=== PATIENT | female | born 1980 | race Caucasian/White ===

== ENCOUNTER → 2018-07-04 | Outpatient (CLI) | payer OTHER ==
[~2018-07-04] MED LIST: ESCI5TAB10 PO; PREN-127 PO
[2018-07-04 10:57] LABS: PLATELET COUNT, AUTOMATED 182 K/uL (150-450)
== END ==
LOC: LAB 10:23
PROVIDERS: ATTEND Obstetrics & Gynecology
DX: Z34.91 Encounter for supervision of normal pregnancy, unspecified, first trimester (principal)
CPT/HCPCS: 36415; 81001; 85025; 86592; 86703; 86762; 86787; 86850; 86900; 86901; 87088; 87340

== ENCOUNTER → 2018-07-31 | Outpatient (CLI) | payer OTHER ==
[~2018-07-31] MED LIST changes: +ESCI5TAB3 PO; +FLUC150T40 PO; +LOR5/325 PO; +METR500T54 PO
== END ==
LOC: LAB 14:18
PROVIDERS: ATTEND Advanced Practice Midwife
DX: N89.8 Other specified noninflammatory disorders of vagina (principal)
CPT/HCPCS: 87210

== ENCOUNTER 2018-08-04 04:28 | Observation (INO) | payer OTHER ==
[~2018-08-04 04:28] MED LIST changes: -ESCI5TAB3 PO; -LOR5/325 PO
--- NOTE | 2018-08-04 04:31 | ER Report ---
History and Physical Time Seen By MD: 04:31 (MILES SZYMANSKI DO) HPI/ROS CHIEF COMPLAINT: Vaginal bleeding,? Miscarriage HISTORY OF PRESENT ILLNESS: 37-year-old female at approximately 11 weeks. Being followed by [facility], for recent yeast infection and bacterial vaginosis. She began having heavy spotting and cramping around 2 AM. She passed a large amount of clots. She states the equivalent of 45 large pools of blood. Also passed a grayish mass of tissue about the size of a golf ball or liquid bigger, which may have been the gestational sac. Her cramping has gotten better in the last half hour. REVIEW OF SYSTEMS: Respiratory: No cough, no dyspnea. Cardiovascular: No chest pain, no palpitations. Gastrointestinal: No vomiting, no abdominal pain. Musculoskeletal: No back pain. (MILES SZYMANSKI DO) Allergies: Coded Allergies: amoxicillin (Verified Allergy, Unknown, Hives, 07/04/18) Uncoded Allergies: cough medicine (Allergy, Unknown, unsure, 07/04/18) Home Meds Active Scripts Escitalopram Oxalate (ESCITALOPRAM OXALATE) 5 Mg Tablet, 5 MG PO QDAY for 30 Days, #30 TAB 12 Refills Prov:TOMHONG 08/04/18 Fluconazole (DIFLUCAN) 150 Mg Tablet, 150 MG PO DIRECTED, #2 TAB 0 Refills 1 tab Po now and repeat in 3 days Prov:DARWIN CASILLAS [facility] 08/01/18 Metronidazole (METRONIDAZOLE) 500 Mg Tablet, 500 MG PO BID for bacterial vaginosis for 7 Days, #14 TAB 0 Refills Prov:DARWIN CASILLAS [facility] 07/31/18 Reported Medications Vits W-Ca,Fe,Fa(<1MG) ( VITAMINS) 1 Each Tablet, 1 EACH PO DAILY, TAB 07/04/18 Escitalopram Oxalate (LEXAPRO) 5 Mg Tablet, 10 MG PO QDAY 07/04/18 Discontinued Scripts Hydrocodone Bit/Acetaminophen (HYDROCODON-ACETAMINOPHEN 5-325) 1 Each Tablet, 1- 2 EACH PO Q4-6H PRN for PAIN, #15 TAKE ONE TABLET BY MOUTH EVERY 4-6 HOURS NEEDED FOR PAIN Prov:MILES SZYMANSKI DO 08/04/18 Reviewed Nurses Notes: Yes Old Medical Records Reviewed: Yes (MILES SZYMANSKI DO) Smoking Status: Never Smoker (KOTAMILESFay Montoya DO) Constitutional Vital Sign - Last 24 Hours 08/04/18 08/04/18 08/04/18 08/04/18 04:33 04:34 04:58 05:00 Temp 98.1 Pulse 64 68 Resp 18 B/P (MAP) 107/71 (83) 107/71 97/60 (72) Pulse Ox 95 95 O2 Delivery Room Air 08/04/18 08/04/18 08/04/18 08/04/18 05:28 05:30 05:58 05:58 Pulse 67 57 B/P (MAP) 90/57 (68) Pulse Ox 98 98 O2 Flow Rate 1.5 08/04/18 08/04/18 08/04/18 08/04/18 06:03 06:30 06:33 07:00 Pulse 57 70 B/P (MAP) 107/69 (82) 107/65 (79) Pulse Ox 99 98 08/04/18 08/04/18 08/04/18 08/04/18 07:03 07:08 07:30 07:38 Pulse 61 ??? 80 B/P (MAP) 124/58 (80) Pulse Ox 98 97 96 08/04/18 08/04/18 08/04/18 08/04/18 08:00 08:05 08:20 08:27 Pulse 64 B/P (MAP) 95/60 (72) 76/50 (59) 83/37 (52) Pulse Ox 94 08/04/18 08:35 Pulse 71 Pulse Ox 94 Intake and Output 08/03/18 08/03/18 08/04/18 15:00 23:00 07:00 Intake Total 1000 ml Balance 1000 ml (ALANA ZIEGLER MD) Physical Exam Vital signs stable, afebrile, pulse ox normal General Appearance: The patient is alert, has no immediate need for airway protection and no current signs of toxicity. Skin warm, dry, pink, slightly pale appearing Eyes: Pupils equal and round no injection. Respiratory: Chest is non tender, lungs are clear to auscultation. Cardiac: regular rate and rhythm Gastrointestinal: Abdomen is soft and non tender, no masses, bowel sounds normal. Musculoskeletal: Neck: Neck is supple and non tender. Extremities have full range of motion and are non tender. Skin: No rashes or lesions. DIFFERENTIAL DIAGNOSIS: After history and physical exam differential diagnosis was considered for vaginal bleeding including but not limited to ectopic , menses, miscarriage, and dysfunctional uterine bleeding. (MILES SZYMANSKI DO) Medical Decision Making Data Points Result Diagram: 08/04/18 0838 08/04/18 0500 Laboratory Hematology Test 08/04/18 00:00 08/04/18 05:00 Human Chorionic Gonadotropin, Quant 08722 mIU/ml Red Blood Count 4.31 M/uL (4.17-5.56) Mean Corpuscular Volume 100.1 fL (80.0-96.0) Mean Corpuscular Hemoglobin 35.0 pg (26.0-33.0) Mean Corpuscular Hemoglobin Concent 34.9 g/dL (32.0-36.0) Red Cell Distribution Width 12.4 % (11.5-14.5) Mean Platelet Volume 8.9 fL (7.2-11.1) Neutrophils (%) (Auto) 84.7 % (39.4-72.5) Lymphocytes (%) (Auto) 8.9 % (17.6-49.6) Monocytes (%) (Auto) 5.1 % (4.1-12.4) Eosinophils (%) (Auto) 0.8 % (0.4-6.7) Basophils (%) (Auto) 0.5 % (0.3-1.4) Nucleated RBC Relative Count (auto) 0.0 /100WBC Neutrophils # (Auto) 6.4 K/uL (2.0-7.4) Lymphocytes # (Auto) 0.7 K/uL (1.3-3.6) Monocytes # (Auto) 0.4 K/uL (0.3-1.0) Eosinophils # (Auto) 0.1 K/uL (0.0-0.5) Basophils # (Auto) 0.0 K/uL (0.0-0.1) Nucleated RBC Absolute Count (auto) 0.00 K/uL Prothrombin Time 13.8 seconds (12.0-14.4) Prothromb Time International Ratio 1.06 Activated Partial Thromboplast Time 31 seconds (23-35) Sodium Level 136 mmol/L (137-145) Potassium Level 3.4 mmol/L (3.5-5.0) Chloride Level 104 mmol/L (98-107) Carbon Dioxide Level 22 mmol/L (22-31) Blood Urea Nitrogen 12 mg/dl (7-18) Creatinine 0.80 mg/dl (0.52-1.04) Glomerular Filtration Rate Calc > 60.0 Random Glucose 125 mg/dl (75-110) Calcium Level 8.9 mg/dl (8.4-10.2) Total Bilirubin 0.2 mg/dl (0.2-1.3) Aspartate Amino Transf (AST/SGOT) 20 U/L (0-35) Alanine Aminotransferase (ALT/SGPT) 20 U/L (0-56) Alkaline Phosphatase 53 U/L (0-126) Total Protein 7.2 g/dl (6.3-8.2) Albumin 4.0 g/dl (3.5-5.0) Human Chorionic Gonadotropin, Qual Positive (NEGATIVE) Chemistry Test 08/04/18 00:00 08/04/18 05:00 08/04/18 08:38 Human Chorionic Gonadotropin, Quant 05072 mIU/ml White Blood Count 7.5 k/uL (4.5-11.0) Red Blood Count 4.31 M/uL (4.17-5.56) Mean Corpuscular Volume 100.1 fL (80.0-96.0) Mean Corpuscular Hemoglobin 35.0 pg (26.0-33.0) Mean Corpuscular Hemoglobin Concent 34.9 g/dL (32.0-36.0) Red Cell Distribution Width 12.4 % (11.5-14.5) Platelet Count 171 K/uL (150-450) Mean Platelet Volume 8.9 fL (7.2-11.1) Neutrophils (%) (Auto) 84.7 % (39.4-72.5) Lymphocytes (%) (Auto) 8.9 % (17.6-49.6) Monocytes (%) (Auto) 5.1 % (4.1-12.4) Eosinophils (%) (Auto) 0.8 % (0.4-6.7) Basophils (%) (Auto) 0.5 % (0.3-1.4) Nucleated RBC Relative Count (auto) 0.0 /100WBC Neutrophils # (Auto) 6.4 K/uL (2.0-7.4) Lymphocytes # (Auto) 0.7 K/uL (1.3-3.6) Monocytes # (Auto) 0.4 K/uL (0.3-1.0) Eosinophils # (Auto) 0.1 K/uL (0.0-0.5) Basophils # (Auto) 0.0 K/uL (0.0-0.1) Nucleated RBC Absolute Count (auto) 0.00 K/uL Prothrombin Time 13.8 seconds (12.0-14.4) Prothromb Time International Ratio 1.06 Activated Partial Thromboplast Time 31 seconds (23-35) Glomerular Filtration Rate Calc > 60.0 Calcium Level 8.9 mg/dl (8.4-10.2) Total Bilirubin 0.2 mg/dl (0.2-1.3) Aspartate Amino Transf (AST/SGOT) 20 U/L (0-35) Alanine Aminotransferase (ALT/SGPT) 20 U/L (0-56) Alkaline Phosphatase 53 U/L (0-126) Total Protein 7.2 g/dl (6.3-8.2) Albumin 4.0 g/dl (3.5-5.0) Human Chorionic Gonadotropin, Qual Positive (NEGATIVE) Hemoglobin 13.5 g/dL (12.0-16.0) Hematocrit 38.8 % (34.0-47.0) Coagulation Test 08/04/18 05:00 Prothrombin Time 13.8 seconds Prothromb Time International Ratio 1.06 Activated Partial Thromboplast Time 31 seconds (ALANA ZIEGLER MD) EKG/Imaging Imaging Results: Ultrasound of the transvaginal pelvic ultrasound was obtained. The results of the study are OB TRANSVAGINAL HISTORY: 37-year-old female with vaginal bleeding. Patient is repor tedly 11 weeks 0 days . COMPARISON: None. FINDINGS: The uterus is retroverted measures 8.6 x 4.9 x 5.7 cm. The endometrial stripe measures 15 mm and is heterogeneous and likely represents hematoma. There is no visible gestational sac or pole. Color Doppler imaging demonstrates a possible small bleeding vessel in the endometrial stripe. Small amount of simple free fluid is noted. Right ovary is nonvisualized. Left ovary measures 3.1 x 2.4 x 1.7 cm. There is a hypoechoic probable corpus luteal cyst measuring 1.8 x 1.9 x 1.8 cm. IMPRESSION: 1. Ultrasound findings suggest intrauterine demise. The endometrium is filled with hematoma. No visible intrauterine gestational sac or pole. There may be a small active bleeding vessel in the endometrium on color Doppler imaging. 2. Small amount of simple appearing free fluid in the cul-de-sac. 3. Right ovary is not visualized. The study was read by the radiologist. I viewed the images myself on the PACS system. (MILES SZYMANSKI DO) ED Course/Re-evaluation Clinical Indication for ER IV: Hydration, IV Access Decision to Disposition Date: Aug 04, 2018 Decision to Disposition Time: 06:40 (MILES SZYMANSKI DO) ED Course I took this patient over from Dr. Szymanski pending reevaluation for pain and bleeding. The patient continued to have 6-7 out of 10 cramping pain and also minimal to moderate bleeding. I performed a pelvic exam which showed a large amount of blood clot at the os as well as blood in the vaginal vault, and active bleeding through the cervix. I removed a large amount of cat from the cervix. The cervix remained open, however the bleeding subsided. The patient's blood pressure dropped to 70 systolic, but improved after the cessation of the bleeding. She was given another liter of IV fluids. I called Dr. Bone who came to the emergency department to evaluate the patient. At this point, the bleeding continues to have subsided. Her pain is improved. However given the turn of events this morning, the patient states she would feel more comfortable under observation for the next few hours. She was given Cytotec. She will be admitted with Dr. Bone for observation. Decision to Disposition Date: Aug 04, 2018 Decision to Disposition Time: 08:54 (ALANA ZIEGLER MD) Depart Departure Latest Vital Signs Vital Signs Date Time Temp Pulse Resp B/P (MAP) Pulse Ox O2 Delivery O2 Flow Rate FiO2 08/04/18 08:35 71 94 08/04/18 08:27 83/37 (52) 08/04/18 05:58 1.5 08/04/18 04:34 98.1 18 Room Air (ALANA ZIEGLER MD) Impression: Primary Impression: Miscarriage Condition: Improved Disposition: Admitted from ER Referrals: DARWIN CASILLAS CNM (PCP) New Scripts Escitalopram Oxalate (ESCITALOPRAM OXALATE) 5 Mg Tablet 5 MG PO QDAY for 30 Days, #30 TAB 12 Refills Prov: HONG BONE 08/04/18 Patient Instructions: Miscarriage (ED) MILES SZYMANSKI DO Aug 04, 2018 04:31 ALANA ZIEGLER MD Aug 04, 2018 08:55
[2018-08-04] MEDS ORDERED: NS(*) 0.9% 1000 ML BAG 1,000 ML IV ONE ×2 (04:41→06:35)
[2018-08-04] MEDS ORDERED: ONDANSETRON 4 MG/2 ML VIAL IVP ONE (04:50)
[2018-08-04] MEDS ORDERED: fentaNYL CITR 100 MCG/2 ML AMP IVP ONE ×2 (04:50→05:30)
[2018-08-04 05:15] LABS: PLATELET COUNT, AUTOMATED 171 K/uL (150-450)
[2018-08-04 05:20] LABS: INR 1.06
[2018-08-04] MEDS ORDERED: HYDROMORPHONE HCL 1 MG/ML SYRINGE IVP ONE ×2 (06:10→06:35)
--- NOTE | 2018-08-04 06:19 | RADIOLOGY IMAGING REPORT ---
[place] [facility] [place] Shanika [place] : 1980 MR: [id number] V: [id number] EXAM DATE: ORDERING PHYSICIAN: MILES ESCUDERO TECHNOLOGIST: Location: [facility] [place] Patient: Shanika Hamilton : 1980 Visit/Account:[id number] Date of Sevice: 08/04/2018 ADDENDUM #1 The cervix appears to be partially open. Report Dictated By: Milton Trejo MD at 08/05/2018 2:21 AM Report E-Signed By: Milton Trejo MD at 08/05/2018 2:22 AM ORIGINAL REPORT OB TRANSVAGINAL HISTORY: 37-year-old female with vaginal bleeding. Patient is reportedly 11 weeks 0 days pr egnant. COMPARISON: None. FINDINGS: The uterus is retroverted measures 8.6 x 4.9 x 5.7 cm. The endometrial stripe measures 15 mm and is h eterogeneous and likely represents hematoma. There is no visible gestational sac or pole. Color Doppler imaging demonstrates a possible small bleeding vessel in the endometrial stripe. Small amount of simple free fluid is noted. Right ovary is nonvisualized. Left ovary measures 3.1 x 2.4 x 1.7 cm. There is a hypoechoic probable corpus luteal cyst measuring 1.8 x 1.9 x 1.8 cm. IMPRESSION: 1. Ultrasound findings suggest intrauterine demise. The endometrium is filled with hematoma. N o visible intrauterine gestational sac or pole. There may be a small active bleeding vessel in the endometrium on color Doppler imaging. 2. Small amount of simple appearing free fluid in the cul-de-sac. 3. Right ovary is not visualized. Results were called to MILES ESCUDERO at 08/04/2018 6:13 AM. Report Dictated By: Milton Trejo MD at 08/04/2018 6:07 AM Report E-Signed By: Milton Trejo MD at 08/04/2018 6:14 AM WSN:[id number]
[2018-08-04] MEDS ORDERED: LOR5/325 PO (07:00)
[2018-08-04] MEDS ORDERED: MISOPROSTOL 200 MCG TAB PR ONE (08:40)
[2018-08-04] MEDS ORDERED: PROMETHAZINE 25 MG/ML 1 ML AMP IVP PRN (09:00)
[2018-08-04] MEDS ORDERED: ACETAMINOPHEN 325 MG TAB PO PRN (09:00)
[2018-08-04] MEDS ORDERED: DOCUSATE CALCIUM 240 MG CAP PO SCH (09:00)
[2018-08-04] MEDS ORDERED: SIMETHICONE 80 MG CHEW CHEW PRN (09:00)
[2018-08-04] MEDS ORDERED: ZOLPIDEM TARTRATE 10 MG TAB PO PRN (09:00)
[2018-08-04] MEDS ORDERED: DLR(*) 1000 ML BAG 1,000 ML IV PRN (09:00)
[2018-08-04] MEDS ORDERED: ONDANSETRON 4 MG/2 ML VIAL IV PRN (09:00)
[2018-08-04] MEDS ORDERED: APAP/HYDROCODONE 325/5 TAB PO PRN (09:00)
[2018-08-04] MEDS ORDERED: FAMOTIDINE 20 MG TAB PO SCH (09:00)
[2018-08-04] MEDS ORDERED: IBUPROFEN 800 MG TAB PO PRN (09:00)
--- NOTE | 2018-08-04 09:10 | History & Physical ---
History of Present Illness Age of Patient: 37 : 1 Para or TPAL: 0 Chief Complaint Vaginal bleeding History of Present Illness Pt is a 37 y/o @ 10 wga by lmp who presents to the ED with a chief complaint of vaginal bleeding. Pt reports she started bleeding around 1 this AM. States bleeding has become increasingly heavy and came to the ER. Denies any shortness of breath or difficulty catching her breath. Reports she has been taking medications for BV and Yeast. History Patient's Blood Type: A Positive Obstetrical History: Past Medical History: Non contributory AMA Allergies: Coded Allergies: amoxicillin (Verified Allergy, Unknown, Hives, 07/04/18) Uncoded Allergies: cough medicine (Allergy, Unknown, unsure, 07/04/18) Social History: Denies X 3. = Harley Arreola. Family History: FH: brain tumor BROTHER OR SISTER (Pt's brother had benign brain tumor ) FH: cancer MGM (Skin Cancer) FH: cardiovascular disease FH: diabetes mellitus FATHER (Pt reports pre-diabetes ) FH: heart disease MGF ([place] ) Hypotension MOTHER Med Rec Home Meds Active Scripts Hydrocodone Bit/Acetaminophen (HYDROCODON-ACETAMINOPHEN 5-325) 1 Each Tablet, 1- 2 EACH PO Q4-6H PRN for PAIN, #15 TAKE ONE TABLET BY MOUTH EVERY 4-6 HOURS NEEDED FOR PAIN Prov:MILES ESCUDERO DO 08/04/18 Fluconazole (DIFLUCAN) 150 Mg Tablet, 150 MG PO DIRECTED, #2 TAB 0 Refills 1 tab Po now and repeat in 3 days Prov:DARWIN CASILLAS [facility] 08/01/18 Metronidazole (METRONIDAZOLE) 500 Mg Tablet, 500 MG PO BID for bacterial vaginos is for 7 Days, #14 TAB 0 Refills Prov:DARWIN CASILLAS [facility] 07/31/18 Reported Medications Vits W-Ca,Fe,Fa(<1MG) ( VITAMINS) 1 Each Tablet, 1 EACH PO DAILY, TAB 07/04/18 Escitalopram Oxalate (LEXAPRO) 5 Mg Tablet, 10 MG PO QDAY 07/04/18 Review of Systems All Systems Reviewed/Normal: Yes, Except as Noted Constitutional: No Fever, No Weight Loss, No Weight Gain, No Chills, No Night Sweats, No Other Neurological: No Syncope, No Confusion, No Weakness, No Dizziness, No Slurred Speech, No Other Eyes: No Vision Change, No Loss of Vision, No Photophobia, No Other ENT: No Hearing Loss, No Sinus Congestion, No Sore Throat, No Ear Ache, No Tinnitus, No Other Cardiovascular: No Chest Pain, No Palpitations, No Orthostatic Hypotension, No Other Respiratory: No Shortness of Breath, No Cough, No Wheezing, No Other Gastrointestinal: No Nausea, No Vomiting, No Diarrhea, No Dysphagia, No Constipation, No Early Satiety, No Hematemesis, No Hematochezia, No Melena, No Abdominal Pain, No Other Genitourinary: No Dysuria, No Hematuria, No Urinary Incontinence, No Other Musculoskeletal: No Pain, No Sprain, No Strain, No Impaired Mobility, No Other Psychiatric: No Depression, No Anxiety, No Other Exam General Exam Vital Signs Vital Signs Date Time Temp Pulse Resp B/P (MAP) Pulse Ox O2 Delivery O2 Flow Rate FiO2 08/04/18 09:00 58/42 (47) 08/04/18 08:40 76 93 08/04/18 05:58 1.5 08/04/18 04:34 98.1 18 Room Air General Apperance: Alert/Awake/No Acute Distress Neuro: No Gross deficits Eyes: Normal Extraocular Movement & Vison ENT: Normal Cardiovascular: Regular Rate and Rhythm Respiratory: No Respiratory Distress, Clear to Auscultation Abdomen: Soft, Non-Tender, Non-Distended, Gravid - Non-Tender, Other (cervix 1 cm, no clot visualized at cervix, no clot expressed with bimanual exam. ) : Normal Psychological: Alert & Oriented X3, Appropriate Mood & Affect Medical Decision Making Data Points Result Diagram: 08/04/18 0838 08/04/18 0500 Pre-Admit Course Medical Record Review: Yes VTE Prophylasis: Adult Deep Vein Thrombosis/Pulmonary: No Assessment and Plan BEHAVIORAL HEALTH THERAPIST Assessment: Stable Problems: (1) Incomplete Status: Acute Assessment & Plan: Will admit to FCU for observation. Give Cytotec CA as she is no longer bleeding heavily. Will watch to ensure bleeding stabilizes. PO pain medication. HONG SANTOS DO Aug 04, 2018 09:10
[2018-08-04 09:55] VITALS: BP 88/55
--- NOTE | 2018-08-04 12:28 | OB/GYN Progress Note ---
OB Subjective Progress Notes Subjective Pt doing better. Reports bleeding is much better. Pain controlled with po pain medications. Minimal cramping. GI: NEG Nausea, NEG Vomiting, NEG Flatus, NEG Bowel Movement : Voiding Well, Vaginal Bleeding, Scant Pain: Comfortable, Tolerating PO Pain Meds Neurological: No Headache, No Other Eyes: No Visual Disturbances OB Objective Physical Exam Vital Signs Date Time Temp Pulse Resp B/P (MAP) Pulse Ox O2 Delivery O2 Flow Rate FiO2 08/04/18 09:00 58/42 (47) 08/04/18 08:40 76 93 08/04/18 05:58 1.5 08/04/18 04:34 98.1 18 Room Air Intake and Output 08/04/18 07:00 Intake Total 1000 ml Balance 1000 ml Intake IV Total 1000 ml General Appearance: Alert/Awake/No Acute Distress Neurological: No Gross deficits Eyes: Normal Extraocular Movement & Vison Respiratory: No Respiratory Distress, Clear to Auscultation Abdomen: Soft, Non-Tender, Non-Distended : Normal Musculoskeletal: No Weakness/Pain Extremities: No Cyanosis,Clubbing or Edema Psychological: Alert & Oriented X3, Appropriate Mood & Affect Result Diagram: 08/04/18 0838 08/04/18 0500 Assessment and Plan SECURITY ASSOCIATE Assessment: Stable Problems: (1) Incomplete Status: Acute Assessment & Plan: Plan to PO challenge. Ambulate and discharge home. Follow up in the office in 2 weeks for HCG. HONG SANTOS DO Aug 04, 2018 12:28
[2018-08-04] MEDS ORDERED: ESCI5TAB3 PO (13:48)
[2018-08-05] MEDS ORDERED: INFLUENZA VIRUS VAC 0.5ML SYR IM ONLY ONE (09:00)
== END 2018-08-04 13:49 | disposition home or self-care (01) ==
LOC: ER 04:34 → OB 08:46 → INTOOBSV 08:46
PROVIDERS: ADMIT Student in an Organized Health Care Education/Training Program; ATTEND Student in an Organized Health Care Education/Training Program
DX: O03.4 Incomplete spontaneous abortion without complication (principal); Z3A.10 10 weeks gestation of pregnancy; Z88.0 Allergy status to penicillin
CPT/HCPCS: 76817; 84702; 84703; 85014; 85018; 85025; 85610; 85730; 86900; 86901; 96361; 96374; 96375; 96376; 99285; G0378; J1170; J2405; J3010; J7030; 36415; 82040; 82247; 82310; 82374; 82435; 82565; 82947; 84075; 84132; 84155; 84295; 84450; 84460; 84520

== ENCOUNTER → 2018-08-21 | Outpatient (CLI) | payer OTHER ==
[~2018-08-21] MED LIST changes: +ESCI5TAB3 PO; +L.AC1CAP6; +LOR5/325 PO
== END ==
LOC: LAB 11:16
PROVIDERS: ATTEND Student in an Organized Health Care Education/Training Program
DX: N89.8 Other specified noninflammatory disorders of vagina (principal)
CPT/HCPCS: 87210

== ENCOUNTER → 2019-02-04 | Outpatient (CLI) | payer OTHER ==
[~2019-02-04] MED LIST changes: +ESCI10TA8 PO; +GABA-549 PO; +METR500T15 PO; -METR500T54 PO
== END ==
LOC: LAB 13:40
PROVIDERS: ATTEND Obstetrics & Gynecology
DX: N89.8 Other specified noninflammatory disorders of vagina (principal)
CPT/HCPCS: 87210